=== PATIENT | female | born 1995 | race Caucasian/White ===

== ENCOUNTER 2024-12-25 18:40 | Emergency (ER) | payer SELFPAY ==
[~2024-12-25] VITALS: Ht 157.5 cm; Wt 82.0 kg
[2024-12-25 18:50] VITALS: O2SAT 99
[2024-12-25] MEDS: ONDANSETRON 4MG ODT PO ONE (19:59)
[2024-12-25] MEDS: DICYCLOMINE HCL 10MG/ML 2ML VIAL IM STA (20:00)
[2024-12-25 20:17] LABS: BASOPHILS % 0.4 % (0.0-2.0); EOSINOPHILS % 1.1 % (0.0-5.0); HEMATOCRIT. 36.1 % (36.0-48.0); HEMOGLOBIN. 11.8 g/dL (12.0-16.0); LYMPHOCYTES % 22.6 % (20.0-50.0); MEAN PLATELET VOLUME 9.7 fl (7.4-10.4); MONOCYTES % 6.2 % (2.0-8.0); NEUTROPHILS % 69.7 % (40.0-76.0); PLATELET 224 x1000/uL (130-400); RED BLOOD CELL COUNT 4.23 mill/uL (4.2-5.4); RED CELL DISTRIBUTION WIDTH 14.7 % (11.6-14.6)
[2024-12-25 20:36] LABS: CREATININE 0.6 mg/dL (0.6-1.0); UREA NITROGEN BLOOD 5 mg/dL (9-23)
[2024-12-25 20:37] LABS: ASPARTATE AMINOTRANSFERASE 28 IU/L (<34)
[2024-12-25 20:38] LABS: BILIRUBIN DIRECT 0.2 mg/dL (<=3.0); BILIRUBIN TOTAL 0.7 mg/dL (0.1-1.0); HCG SCREEN NEGATIVE; PROTEIN TOTAL 7.5 g/dL (6.0-8.3)
[2024-12-25 21:24] LABS: CLARITY URINE CLEAR (CLEAR); COLOR URINE YELLOW (YELLOW); GLUCOSE URINE NEGATIVE (NEGATIVE); KETONES URINE NEGATIVE (NEGATIVE); LEUKOCYTE ESTERASE URINE NEGATIVE (NEGATIVE); NITRITE URINE NEGATIVE (NEGATIVE); OCCULT BLOOD URINE NEGATIVE (NEGATIVE); PH URINE 6.0 (4.5-8.0); PROTEIN URINE NEGATIVE (NEGATIVE); SPECIFIC GRAVITY URINE 1.013 (1.005-1.030); UROBILINOGEN URINE 0.2 E.U./dL (0.2-1.0)
[2024-12-25] MEDS ORDERED: OXYC-100 MT (23:45)
[2024-12-25] MEDS: OXYCODONE HCL/ACETAMINOPHEN 5/325MG TABLET PO NR (23:53)
[2024-12-25] MEDS: IOHEXOL-300 100 ML BOTTLE ONE (23:53)
[2024-12-25] MEDS ORDERED: POLY119P2 MT (23:54)
[2024-12-26] VITALS: BP 115/61; PULSE 68; RESP 16; TEMP 37.1; O2SAT 100
== END 2024-12-26 00:02 | disposition home or self-care (01) ==
LOC: ER 18:40
DX: N83.209 Unspecified ovarian cyst, unspecified side (principal)
CPT/HCPCS: 99285; 74177; 93976; 76830; 76856; 80076; 80048; 81003; 81025; 84703; 83690; 85025; 36415; 96372; Q9967; Q0162; J0500